=== PATIENT | female | born 1995 ===

== ENCOUNTER 2016-11-24 17:20 | Emergency (ER) | END 2016-11-24 17:35 | disposition left against medical advice (07) | LOC: UCCORT 17:20 | DX: R05 Cough (principal); Z53.21 Procedure and treatment not carried out due to patient leaving prior to being seen by health care provider ==

== ENCOUNTER 2017-08-19 09:49 | Emergency (ER) | payer BC ==
[2017-08-19 10:38] VITALS: BP 121/59
--- NOTE | 2017-08-19 11:02 | UC ---
Lower Extremity/Ankle HPI - HPI Summary HPI Summary: Pt c/o gradual onset of left lower leg/guevara pain. Pt has history of stress fracture in right lower leg. 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 pt reports that pain is worse with ambulation. Does not hurt while skating - History of Current Complaint Chief Complaint: UCLowerExtremity Stated Complaint: LEFT LEG INJURY/PAIN Time Seen by Provider: 08/19/17 10:46 Hx Obtained From: Patient Hx Last Menstrual Period: 08/07/17 ?: No Onset/Duration: Gradual Onset, Lasting Weeks, Still Present Severity Initially: Mild Severity Currently: Mild Aggravating Factor(s): Standing, Ambulation Alleviating Factor(s): Rest Able to Bear Weight: Yes - Risk Factors Gout Risk Factors: Negative DVT Risk Factors: Negative Septic Arthritis Risk Factor: Negative - Allergies/Home Medications Allergies/Adverse Reactions: Allergies Allergy/AdvReac Type Severity Reaction Status Date / Time No Known Allergies Allergy Verified 08/19/17 10:38 Home Medications: Home Medications Levonorgestrel & Eth Estradiol [Chateal 0.15-30 mg-Mcg] 08/19/17 [History Confirmed 08/19/17] Venlafaxine ER (NF) [Effexor ER (NF)] 150 mg PO DAILY 08/19/17 [History Confirmed 08/19/17] PMH/Surg Hx/FS Hx/Imm Hx Previously Healthy: Yes - Surgical History Surgical History: Yes Surgery Procedure, Year, and Place: cardiac ablasion - Family History Known Family History: Positive: Cardiac Disease - Social History Occupation: Student Lives: With Family Alcohol Use: None Substance Use Type: None Smoking Status (MU): Never Smoked Tobacco Have You Smoked in the Last Year: No - Immunization History Most Recent Influenza Vaccination: not current Review of Systems Constitutional: Negative Skin: Negative Eyes: Negative ENT: Negative Respiratory: Negative Cardiovascular: Negative Gastrointestinal: Negative Motor: Negative Neurovascular: Negative Musculoskeletal: Arthralgia - left lower leg Neurological: Negative Psychological: Negative Is Patient Immunocompromised?: No All Other Systems Reviewed And Are Negative: Yes Physical Exam Triage Information Reviewed: Yes Appearance: Well-Appearing Vital Signs: Initial Vital Signs Temp 98.0 F 08/19/17 10:33 Pulse 56 08/19/17 10:33 Resp 18 08/19/17 10:33 BP 121/59 08/19/17 10:33 Pulse Ox 100 08/19/17 10:33 Vital Signs Reviewed: Yes Eye Exam: Normal ENT Exam: Normal Dental Exam: Normal Neck exam: Normal Respiratory: Positive: No respiratory distress Musculoskeletal Exam: Other Musculoskeletal: Positive: Other: - tenderness, left lower tibia, distal medial aspect Neurological Exam: Normal Psychological Exam: Normal Skin Exam: Normal Lower Extremity Course/Dx - Course Course Of Treatment: I discussed the results of the Xray. IMPRESSION: NO EVIDENCE FOR STRESS FRACTURE, IF THE PATIENT'S SYMPTOMS PERSIST RECOMMEND. MR IMAGING FOR FURTHER EVALUATION. and discussed the need to follow up with an orthopedic provider if symptoms persist or worsen. - Differential Dx/Diagnosis Differential Diagnosis/HQI/PQRI: Fracture (Closed), Strain, Other - over use syndrome Provider Diagnoses: left lower leg pain Discharge - Discharge Plan Condition: Stable Disposition: HOME Patient Education Materials: Leg Pain (ED) Referrals: Sanjeev Damon [Medical Doctor] - If Needed Nito Alfredo MD [Medical Doctor] - If Needed Non Staff,Doctor [Primary Care Provider] - Additional Instructions: Please follow up with your PCP or return to clinic as needed. If symptoms persist or worsen please follow up with either of the orthopedic providers listed or with your own.
--- NOTE | 2017-08-19 11:07 | RAD ---
INDICATION: Left lower leg injury. TECHNIQUE: 2 views of the left lower leg were obtained. FINDINGS: The bones are normal alignment. No fracture is seen. IMPRESSION: NO EVIDENCE FOR STRESS FRACTURE, IF THE PATIENT'S SYMPTOMS PERSIST RECOMMEND MR IMAGING FOR FURTHER EVALUATION.
== END 2017-08-19 11:16 | disposition home or self-care (01) ==
LOC: MERGE 09:49 → UCCORT 09:49
DX: M79.662 Pain in left lower leg (principal); Z87.312 Personal history of (healed) stress fracture
CPT/HCPCS: 99211; G0463